=== PATIENT | female | born 1980 | race Caucasian/White ===

== ENCOUNTER 2016-11-05 11:57 | Inpatient (IN) | payer OTHER ==
[2016-11-05 13:39] LABS: Hematocrit 33 % (35-47); Hemoglobin 11.1 g/dl (12.0-16.0); Mean Corpuscular HGB Conc 33 g/dl (31-36); Mean Corpuscular Hemoglobin 26 pg (27-31); Mean Corpuscular Volume 76 fL (80-97); Mean Platelet Volume 11 um3 (7.4-10.4); Red Blood Count 4.37 10^6/ul (4.0-5.4); Red Cell Distribution Width 15 % (10.5-15); White Blood Count 10.6 10^3/ul (3.5-10.8)
[2016-11-05] MEDS ORDERED: Oxytocin in LR* 20 UNITS/1,000 ML BAG IVPB ONE (15:30)
[2016-11-05] MEDS ORDERED: Oxytocin in LR* 20 UNITS/1,000 ML BAG IVPB SCH (16:00)
[2016-11-05] MEDS ORDERED: Glycerin ADULT SUPP PR PRN (23:59)
[2016-11-05] MEDS ORDERED: Acetaminophen TAB* 325 MG PO PRN (23:59)
[2016-11-05] MEDS ORDERED: Dibucaine 1% 28.35 GM TUBE PR PRN (23:59)
[2016-11-05] MEDS ORDERED: Witch Hazel PAD* JAR TOPICAL PRN (23:59)
[2016-11-06] MEDS ORDERED: Oxytocin in LR* 20 UNITS/1,000 ML BAG IVPB SCH (00:02)
[2016-11-06] MEDS: Ibuprofen TAB* 600 MG PO PRN ×2 (02:48→13:32)
[2016-11-06] MEDS: Docusate CAP* 100 MG PO SCH ×3 (08:55→20:18)
[2016-11-06] MEDS: Ferrous Gluconate TAB* 324 MG TAB PO SCH ×2 (09:00→20:18)
[2016-11-07 07:36] LABS: Hematocrit 28 % (35-47); Hemoglobin 9.3 g/dl (12.0-16.0); Mean Corpuscular HGB Conc 33 g/dl (31-36); Mean Corpuscular Hemoglobin 25 pg (27-31); Mean Corpuscular Volume 77 fL (80-97); Mean Platelet Volume 11 um3 (7.4-10.4); Red Blood Count 3.72 10^6/ul (4.0-5.4); Red Cell Distribution Width 15 % (10.5-15)
[2016-11-07 07:43] LABS: Comments Flag Yes
[2016-11-07 08:08] VITALS: BP 105/55
[2016-11-07] MEDS ORDERED: Tetan/Diph/Pertus SYR(Tdap)* 0.5 ML SYR(BOOSTRIX) use SYR IM ONE (09:00)
[2016-11-07] MEDS: Docusate CAP* 100 MG PO SCH (09:25)
== END 2016-11-07 10:36 | disposition home or self-care (01) | DRG 560 ==
LOC: MCHOBOUT 11:57 → MCHOB 12:12
PROVIDERS: ADMIT Midwife; ATTEND Midwife
PROC: 10E0XZZ Delivery of Products of Conception, External Approach (ICD-10-PCS; principal; 2016-11-05)
DX: O48.0 Post-term pregnancy (principal); D64.9 Anemia, unspecified; O66.0 Obstructed labor due to shoulder dystocia; O90.81 Anemia of the puerperium; Z3A.41 41 weeks gestation of pregnancy; Z37.0 Single live birth
CPT/HCPCS: 36415; 85025; 85027; 86850; 86900; 86901; A9270-GY

== ENCOUNTER 2016-12-14 15:21 | Emergency (ER) | payer OTHER ==
[2016-12-14 15:28] VITALS: BP 98/59
--- NOTE | 2016-12-14 15:36 | UC ---
Breast Complaint - HPI Summary HPI Summary: 36 YEAR OLD FEMALE WHO IS BREAST FEEDING PRESENTS WITH COMPLAINS OF ERYTHEMA OVER THE RIGHT BREAST. - History of Current Complaint Breast Chief Complaint: Pain, Right, Inflammation Onset/Duration: Started Days Ago Timing: Constant Breast Pain Aggravating Factors: Palpation, Pressure Breast Associated Signs/Symptoms: Redness, Warmth - Allergy/Home Medications Allergies/Adverse Reactions: Allergies Allergy/AdvReac Type Severity Reaction Status Date / Time No Known Allergies Allergy Verified 12/14/16 15:28 PMH/Surg Hx/FS Hx/Imm Hx Previously Healthy: Yes - Surgical History Surgical History: Yes Surgery Procedure, Year, and Place: 09/08 ANAL FISTULOTOMY - Family History Known Family History: Negative: Hypertension, Diabetes - Social History Alcohol Use: None Substance Use Type: None Smoking Status (MU): Never Smoked Tobacco Have You Smoked in the Last Year: No - Immunization History Most Recent Influenza Vaccination: declined last season Most Recent Pneumonia Vaccination: never Review of Systems Constitutional: Negative Skin: Other - RIGHT BREAST PAIN/ERYTHEMA Eyes: Negative ENT: Negative Respiratory: Negative Cardiovascular: Negative Gastrointestinal: Negative Genitourinary: Negative Motor: Negative Neurovascular: Negative Musculoskeletal: Negative Neurological: Negative Psychological: Negative All Other Systems Reviewed And Are Negative: Yes Physical Exam Triage Information Reviewed: Yes Vital Signs: Initial Vital Signs Temp 36.6 C 12/14/16 15:24 Pulse 101 12/14/16 15:24 Resp 18 12/14/16 15:24 BP 98/59 12/14/16 15:24 Pulse Ox 96 12/14/16 15:24 Eye Exam: Normal ENT Exam: Normal Dental Exam: Normal Neck exam: Normal Neck: Positive: 1 Respiratory Exam: Normal Cardiovascular Exam: Normal Abdominal Exam: Normal Musculoskeletal Exam: Normal Neurological Exam: Normal Psychological Exam: Normal Skin: Positive: Other - RIGHT BREAST ERYTHEMA/PAIN Breast Pain Course/Dx - Diagnoses Provider Diagnoses: Mastitis Discharge - Discharge Plan Condition: Stable Disposition: HOME Prescriptions: Cephalexin CAP* [Keflex CAP*] 500 mg PO TID #30 cap Patient Education Materials: Mastitis (ED) Referrals: Ijeoma Olson MD [Primary Care Provider] -
== END 2016-12-14 15:35 | disposition home or self-care (01) ==
LOC: UCEAST 15:21
DX: N61.0 Mastitis without abscess (principal)
CPT/HCPCS: 99212; G0463

== ENCOUNTER 2017-03-16 16:24 | Emergency (ER) | payer OTHER ==
[2017-03-16] MEDS ORDERED: Pantoprazole TAB (NF) 40 MG TAB PO ONE (16:55)
[2017-03-16] MEDS ORDERED: Al Hydrox/Mg Hydrox/Simet LIQ* 30 ML UDC PO ONE (16:55)
[2017-03-16] MEDS ORDERED: Famotidine TAB* 20 MG PO PRN (16:55)
[2017-03-16] MEDS ORDERED: Lidocaine 2% VISCOUS* 15 ML UDC PO ONE (16:56)
[2017-03-16] MEDS ORDERED: Omeprazole CAP* 20 MG PO ONE (17:30)
[2017-03-16] MEDS ORDERED: Sucralfate TAB* 1 GM PO ONE (17:33)
--- NOTE | 2017-03-16 18:37 | ED ---
Moise Foster Gabriel, scribed for Aashish Avery MD on 03/16/17 at 1655 . Throat Pain/Nasal Congestion - HPI Summary HPI Summary: This patient is a 37 year old F presenting to [facility] accompanied by her daughter with a chief complaint of sore throat since 3 weeks worse in 2 days. The patient rates the pressure as 9/10 in severity and located in her back, chest, and stomach. Patient denies fever, cough, and dyspnea. Patient states she is her 4 month year old. - History of Current Complaint Chief Complaint: EDThroatPain Time Seen by Provider: 03/16/17 16:38 Hx Obtained From: Patient Onset/Duration: Lasting Days - 3, Still Present Severity: Moderate Associated Signs And Symptoms: Positive: Negative - fever, cough, and dyspnea - Allergies/Home Medications Allergies/Adverse Reactions: Allergies Allergy/AdvReac Type Severity Reaction Status Date / Time No Known Allergies Allergy Verified 12/14/16 15:28 PMH/Surg Hx/FS Hx/Imm Hx Previously Healthy: No Endocrine/Hematology History: Denies: Hx Diabetes, Hx Thyroid Disease Cardiovascular History: Denies: Hx Hypertension, Hx Pacemaker/ICD Respiratory History: Denies: Hx Asthma, Hx Chronic Obstructive Pulmonary Disease (COPD) GI History: Denies: Hx Ulcer History: Denies: Hx Dialysis, Hx Renal Disease Sensory History: Denies: Hx Contacts or Glasses, Hx Hearing Aid Opthamlomology History: Denies: Hx Contacts or Glasses Psychiatric History: Denies: Hx Panic Disorder - Surgical History Surgery Procedure, Year, and Place: 09/08 ANAL FISTULOTOMY Hx Anesthesia Reactions: No Infectious Disease History: No Infectious Disease History: Denies: Hx Clostridium Difficile, Hx Hepatitis, Hx Human Immunodeficiency Virus (HIV), Hx of Known/Suspected MRSA, Hx Shingles, Hx Tuberculosis, Hx Known/ Suspected VRE, Hx Known/Suspected VRSA, History Other Infectious Disease, Traveled Outside the [place] in Last 30 Days - Family History Known Family History: Negative: Hypertension, Diabetes - Social History Alcohol Use: None Substance Use Type: Reports: None Smoking Status (MU): Never Smoked Tobacco Have You Smoked in the Last Year: No Review of Systems Negative: Fever Positive: Sore Throat Respiratory: Negative - dyspnea Negative: Cough All Other Systems Reviewed And Are Negative: Yes Physical Exam - Summary Physical Exam Summary: Appearance: Well appearing, no pain distress Skin: warm, dry, reflects adequate perfusion Head/face: normal Eyes: EOMI, TRISTON ENT: normal Neck: supple, non-tender Respiratory: CTA, breath sounds present Cardiovascular: RRR, pulses symmetrical Abdomen: non-tender, soft Bowel: present Musculoskeletal: normal, strength/ROM intact Neuro: normal, sensory motor intact, A&Ox3 Triage Information Reviewed: Yes Vital Signs On Initial Exam: Initial Vitals Temp Pulse Resp BP Pulse Ox 97.3 F 73 16 117/72 100 03/16/17 16:27 03/16/17 16:27 03/16/17 16:27 03/16/17 16:27 03/16/17 16:27 Vital Signs Reviewed: Yes Diagnostics - Vital Signs Vital Signs Temp Pulse Resp BP Pulse Ox 03/16/17 16:27 97.3 F 73 16 117/72 100 - Laboratory Lab Statement: Any lab studies that have been ordered have been reviewed, and results considered in the medical decision making process. - EKG 1653 Cardiac Rate: NL EKG Rhythm: Sinus Rhythm - at [address] Segment: Normal EKG Interpretation: normal axis, normal interval Re-Evaluation - Re-Evaluation First Eval Re-Evaluation Time: 18:20 Change: Improved - Patient is feeling better EENT Course/Dx - Course Course Of Treatment: pt with dysphagia and significant gerd. Kath PO solids and liquids. Tx with antacids and topicals with relief. Suggest GI eval and scope to be done soon. Referral given. Stable otherwise. D/C with close f/u. - Diagnoses Provider Diagnoses: Acute esophagitis, Dysphasia Discharge - Discharge Plan Condition: Good Disposition: HOME Prescriptions: Famotidine TAB* [Pepcid 20 MG TAB*] 20 mg PO BID #14 tab Pantoprazole TAB (NF) [Protonix TAB (NF)] 40 mg PO DAILY #30 tab Sucralfate TAB* [Carafate*] 1 gm PO QID #40 tab Patient Education Materials: Esophagitis (ED) Referrals: Sonu Xavier MD [Medical Doctor] - Ijeoma Olson MD [Primary Care Provider] - Additional Instructions: Call your doctor for referral for attached GI doctor in the morning. If you dont require referral, call GI doctor direct to schedule. Avoid alcohol, ibuprofen or related medications, spicy foods and anything acidic. Return if unable to swallow, bleeding, worse or other concerns. The documentation as recorded by the Moise galeano Gabriel accurately reflects the service I personally performed and the decisions made by me, Aashish Avery MD.
[2017-03-16 19:00] VITALS: BP 103/70
[2017-03-17] MEDS ORDERED: Sucralfate TAB* 1 GM PO SCH (07:30)
== END 2017-03-16 19:00 | disposition home or self-care (01) ==
LOC: ED 16:24
DX: K20.9 Esophagitis, unspecified (principal); R47.02 Dysphasia
CPT/HCPCS: 93005; 99282; A9270-GY

== ENCOUNTER 2017-03-24 11:10 | Emergency (ER) | payer OTHER ==
[2017-03-24 11:16] VITALS: BP 111/68
--- NOTE | 2017-03-24 12:43 | RAD ---
INDICATION: Pinching of the neck, difficulty swallowing. COMPARISON: Correlation is made with a prior thyroid ultrasound from June 22, 2016. TECHNIQUE: AP and lateral images of the soft tissue of the neck were obtained. FINDINGS: The epiglottis and aryepiglottic folds appear to be within normal limits. The retropharyngeal soft tissues appear normal. The airway appears patent. Air is noted in the esophagus in the lower cervical region. There is calcification which projects over the trachea at the thoracic inlet on the lateral film possibly related to thyroid calcification although nonspecific. The vertebra are normal alignment. Disc spaces appear maintained. IMPRESSION: 1. NO EVIDENCE FOR ACUTE FINDING. 2. CALCIFICATION PROJECTS OVER THE TRACHEA ON THE LATERAL VIEW AT THE THORACIC INLET LIKELY INCIDENTAL ALTHOUGH NONSPECIFIC POSSIBLY RELATED TO THE THYROID GLAND.
--- NOTE | 2017-03-24 13:25 | ED ---
Throat Pain/Nasal Congestion - HPI Summary HPI Summary: Patient presents for the second time in 2 weeks to the ED with a CC of feeling as something is stuck in her throat. She denies dysphagia or odynophagia, stating she "feels something" to the right side of her throat. She denies eating anything which could have gotten "stuck" and denies any feeling of sharp objects in the throat. Symptoms present x 3 weeks without improvement of OTC medications for GERD. She was dx with GERD upon last visit. She denies other symptoms. Currently breast feeding. Denies thyroid problems. She has not been more anxious or lethargic recently and denies any and all other symptoms at this time. Denies medication use, recent illness or difficulty breathing. - History of Current Complaint Chief Complaint: EDThroatPain Time Seen by Provider: 03/24/17 11:40 Hx Obtained From: Patient Onset/Duration: Sudden Onset Severity: Moderate Associated Signs And Symptoms: Positive: FB Sensation - Epiglottits Risk Factors Epiglottis Risk Factors: Negative - Allergies/Home Medications Allergies/Adverse Reactions: Allergies Allergy/AdvReac Type Severity Reaction Status Date / Time No Known Allergies Allergy Verified 12/14/16 15:28 PMH/Surg Hx/FS Hx/Imm Hx Previously Healthy: Yes Endocrine/Hematology History: Denies: Hx Diabetes, Hx Thyroid Disease Cardiovascular History: Denies: Hx Hypertension, Hx Pacemaker/ICD Respiratory History: Denies: Hx Asthma, Hx Chronic Obstructive Pulmonary Disease (COPD) GI History: Denies: Hx Ulcer History: Denies: Hx Dialysis, Hx Renal Disease Sensory History: Denies: Hx Contacts or Glasses, Hx Hearing Aid Opthamlomology History: Denies: Hx Contacts or Glasses Psychiatric History: Denies: Hx Panic Disorder - Surgical History Surgery Procedure, Year, and Place: 09/08 ANAL FISTULOTOMY Hx Anesthesia Reactions: No - Immunization History Immunizations Up to Date: Yes Infectious Disease History: No Infectious Disease History: Denies: Hx Clostridium Difficile, Hx Hepatitis, Hx Human Immunodeficiency Virus (HIV), Hx of Known/Suspected MRSA, Hx Shingles, Hx Tuberculosis, Hx Known/ Suspected VRE, Hx Known/Suspected VRSA, History Other Infectious Disease, Traveled Outside the [place] in Last 30 Days - Family History Known Family History: Negative: Hypertension, Diabetes - Social History Occupation: Employed Full-time Lives: With Family Alcohol Use: None Hx Substance Use: No Substance Use Type: Reports: None Hx Tobacco Use: No Smoking Status (MU): Never Smoked Tobacco Have You Smoked in the Last Year: No Review of Systems Constitutional: Negative Negative: Fever, Chills, Fatigue, Skin Diaphoresis Eyes: Negative Positive: Sore Throat - FB sensation in the throat x 3 weeks Cardiovascular: Negative Respiratory: Negative Musculoskeletal: Negative Skin: Negative Neurological: Negative All Other Systems Reviewed And Are Negative: Yes Physical Exam Triage Information Reviewed: Yes Vital Signs On Initial Exam: Initial Vitals Temp Pulse Resp BP Pulse Ox 97.0 F 88 16 111/68 96 03/24/17 11:13 03/24/17 11:13 03/24/17 11:13 03/24/17 11:13 03/24/17 11:13 Vital Signs Reviewed: Yes Appearance: Positive: Well-Appearing, Well-Nourished Skin: Positive: Warm, Skin Color Reflects Adequate Perfusion Head/Face: Positive: Normal Head/Face Inspection Eyes: Positive: EOMI, TRISTON, Conjunctiva Clear ENT: Positive: Pharynx normal, TMs normal. Negative: TM bulging, TM dull, TM red, Tonsillar swelling, Tonsillar exudate, Hoarse voice, Dental tenderness, Sinus tenderness, Uvula midline Neck: Positive: Supple, No Lymphadenopathy Respiratory/Lung Sounds: Positive: Clear to Auscultation Cardiovascular: Positive: RRR, Pulses are Symmetrical in both Upper and Lower Extremities Musculoskeletal: Positive: Strength/ROM Intact Neurological: Positive: Speech Normal Psychiatric: Positive: Normal, Affect/Mood Appropriate - Roberts Coma Scale Coma Scale Total: 15 Diagnostics - Vital Signs Vital Signs Temp Pulse Resp BP Pulse Ox 03/24/17 11:13 97.0 F 88 16 111/68 96 - Laboratory Lab Results: Lab Results 03/24/17 Range/Units 11:52 Group A Strep Rapid Negative (Negative) Lab Statement: Any lab studies that have been ordered have been reviewed, and results considered in the medical decision making process. EENT Course/Dx - Course Course Of Treatment: Patient presents with FB sensation to the throat. GERD OTC medications without relief. Neck Soft Tissue obtained: IMPRESSION: 1. NO EVIDENCE FOR ACUTE FINDING. 2. CALCIFICATION PROJECTS OVER THE TRACHEA ON THE LATERAL VIEW AT THE THORACIC INLET. LIKELY INCIDENTAL ALTHOUGH NONSPECIFIC POSSIBLY RELATED TO THE THYROID GLAND. Encouraged endocrinology follow up for an evaluation and possible US which is non-emergent on this day. No signs of hypo/hyper thyroidism and labs not obtained at this time. Possibly an incidental finding, but would like to r/o other pathologies. Patient has already been referred to Dr. xavier for scope, but is unable to have the appt until approx. 1 month from today. Treatment options explained to patient. Patient understands the plan, voices no concerns at this time and understands the return precatuions given to them if they develop any worsening or changing symptoms. They are OK for discharge at this time. VS stable on discharge. Primary care follow up as agreed on discharge. - Diagnoses Provider Diagnoses: Foreign body sensation in throat Discharge - Discharge Plan Condition: Stable Disposition: HOME Referrals: Payam Reddy MD [Medical Doctor] - 1 Week (soft tissue neck with possibly incidental finding or related to thyroid - recheck with endocrinology) Sonu Xavier MD [Medical Doctor] - Ijeoma Olson MD [Primary Care Provider] - Additional Instructions: Please call Dr. Reddy for an endocrinology appt to assess the thyroid I suggest you follow up with Dr. Xavier as scheduled If you develop symptoms such as not being able to swallow - return to the ED immediately
== END 2017-03-24 13:16 | disposition home or self-care (01) ==
LOC: ED 11:10
DX: R09.89 Other specified symptoms and signs involving the circulatory and respiratory systems (principal); J02.9 Acute pharyngitis, unspecified
CPT/HCPCS: 70360; 87651; 99281